=== PATIENT | male | born 1980 | race Caucasian/White ===

== ENCOUNTER 2017-12-18 08:30 | Outpatient (RCR) | payer OTHER, SELFPAY ==
--- NOTE | 2017-11-25 16:49 | HP.PTEVAL_ITS ---
Patient's Visit Information PIETER LERNER is a 37 year old M referred to Physical Therapy by Out of Town [facility] with a diagnosis of Achilles Tendonitis and plantar fascitis. 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 Had a procedure 2014 shock wave therapy with graston 2 years ago. Pain has been on/off for 10 years. Comes and goes. First step out of bed in the AM is the worst- tip toes knees bent- once he brushes his teeth he can put his feet down. Left side is the problem when sitting and most right now but it goes back and forth. Worst: 6/10 agg:getting up in the AM, running, getting up from sitting for long periods of time. Best: 0/10 Eases: inserts. Was wearing inserts. Running: has not gone over a mile in a few months but wants to get back to running. Does have inserts but they are not custom. Work: sitting most of the day. Switched to be a toe runner about 6-7 years ago. Describes pain as Sharp shooting pains. Does have night splints. Sleep: does not wake him up. No N/T in the feet. PMHx: bursitis in the left hip, right torn rtC, ADHD. Meds: none. X-rays. - Objective Posture: fh, RS- patient is mildly overweight. Gait: slightly antalgic- does not heel strike. hr/TR: able- mild increase pain with TR. SLS: 30 sec with mild pes planus. ROM: DF: 5 degrees, PF: 60 degrees, Ever: 30 degrees, Inv: 50 degrees. Strength: Ankle: 5/5, Knee: 5/5, Hip: 4+/5. Palpation: tender along achilles tendon bilaterally with pain along arch and heel left >right - Goals Goal 1:: Patient will be I with HEP and progression Goal Time Frame: 4-6 Weeks Goal 2:: Lorenzo will demo mild restriction in gastroc Goal Time Frame: 4-6 Weeks Goal 3:: Patient will report 0/10 pain for 1 week Goal Time Frame: 4-6 Weeks - Rehabilitation Potential Physical Therapy Diagnosis: Lorenzo presents with hypomobility- he has decreased ROM, strength and muscular endurance leading to abnormal gait and increased pain Rehabilitation Potential: Fair - Anticipated Interventions Patient/Client Instruction: Educate patient on: Benefits of Fitness Program For the Purpose of:: To improve performance and independence with ADL's Therapeutic Exercise to Include: Strength training, Endurance training, Balance training, Body mechanics, Postural training, Flexibilty training, Passive ROM, Active ROM Manual Therapy Techniques to Include: Functional dry needling, Soft tissue mobilization For the Purpose of:: To improve nutrient delivery to tissue IF ES: No Cryotherapy (ice pack, ice massage): Yes Thermo therapy (hot pack): Yes Ultrasound (thermal/non thermal): Yes For the Purpose of:: To decrease pain Thank you for the opportunity to evaluate your patient. For Medicare and Medicare HMO plans, please review the plan of care and approve it. It will need to be FAXED BACK to us at [phone] for Medicare purposes. Please let me know if there are questions or concerns regarding this plan of care. Physician Signature: Date:
--- NOTE | 2018-02-04 09:26 | HP.PT.NRP ---
HP - Discharge Summary (1) - Patient Information PIETER LERNER was seen in my office for initial evaluation on 11/25/17. The following Plan of Care was established for this patient: Initial Frequency: 2x /Week Initial Duration: 4 Weeks - Anticipated Interventions Patient/Client Instruction: Educate patient on: Benefits of Fitness Program For the Purpose of:: To improve performance and independence with ADL's Therapeutic Exercise to Include: Strength training, Endurance training, Balance training, Body mechanics, Postural training, Flexibilty training, Passive ROM, Active ROM Manual Therapy Techniques to Include: Functional dry needling, Soft tissue mobilization For the Purpose of:: To improve nutrient delivery to tissue IF ES: No Cryotherapy (ice pack, ice massage): Yes Thermo therapy (hot pack): Yes Ultrasound (thermal/non thermal): Yes For the Purpose of:: To decrease pain This patient was last seen in our office . Pertinent comments regarding their Physical therapy will appear below: Patient has not attended physical therapy in over 30 days and is appropriate for d/c- return to MD as needed. At this point I will be discontinuing this patient from physical therapy. I would be happy to see this patient again in the future if found appropriate by the physician. Thank you! Eve Caldera
== END 2017-12-18 19:00 | disposition home or self-care (01) ==
LOC: PT 08:30
DX: M76.61 Achilles tendinitis, right leg (principal); M25.571 Pain in right ankle and joints of right foot; M72.2 Plantar fascial fibromatosis
CPT/HCPCS: 97110; 97140; 97161

== ENCOUNTER 2018-06-03 08:30 | Outpatient (RCR) | payer OTHER, SELFPAY ==
--- NOTE | 2018-05-05 10:14 | HP.PTEVAL_ITS ---
Patient's Visit Information PIETER LERNER is a 37 year old M referred to Physical Therapy by JOSIE TEJADA with a diagnosis of LBP. Date of Evaluation: 05/05/18 Physical Therapist: Richie Guerrero, PT, - Visit Plan Frequency: 3x /Week Duration: 5 weeks Plan: REIL, postural edu, core stab ex's, and HEP - Subjective Subjective: Pt reports he has had chronic LBP in the past, but notes he really aggrivated his LB 1 1/2 weeks ago. Pt reports he was exercising performing a deadlift when he felt like his LB became sore. Pt reports he has had a Hx of LB trauma beginning when he was a kid. Pt notes his pain is getting better since he was given a steroid pack. Pt notes he has always exercised, but has never really worked his core. Pt reports walking has been difficult due to his LBP. Pt reports sleep diff without taking pain meds. Pt reports he has been stretching some to help decrease his pain. No T or N in LE's. 0/10 pain at rest , 4/10 pain at worst. - Pain LBP Pain Intensity (Out of 10): 0 Pain Intensity Range: 4 - Objective Neuro: B LE sensation is WNL to light touch. B patellar reflex= 2/3. MMT: B LE' s are grossly 5/5 throughout. L/S ROM: Pt is minimally limited with extension, all other motions are WNL. Repeated Movements: RFIS 10 reps provokes LBP. LAYO 10 reps NE. REIL 10x2 had no effect afterwards. - Goals Goal 1:: Decrease LBP x 50% to aid with sleep Goal Time Frame: 4-6 Weeks Goal 2:: Increase L/S ext ROM x 1 grade to aid with decreasing LBP Goal Time Frame: 4-6 Weeks Goal 3:: Return to normal exercise routine without limitation Goal Time Frame: 4-6 Weeks Goal 4:: I with HEP Goal Time Frame: 4-6 Weeks - Rehabilitation Potential Physical Therapy Diagnosis: Pt has LBP, decreased L/S ROM, and difficulty with prolonged walking secondary to L/S disc derrangement Rehabilitation Potential: Good - Anticipated Interventions Patient/Client Instruction: Educate patient on: Condition, Plan of Care For the Purpose of:: To improve self management Therapeutic Exercise to Include: Strength training, Endurance training, Body mechanics, Postural training, Dynamic Lumbar Stabilization For the Purpose of:: To decrease pain, To increase ROM, To improve muscle performance and motor function Cryotherapy (ice pack, ice massage): Yes Thermo therapy (hot pack): Yes For the Purpose of:: To decrease pain Thank you for the opportunity to evaluate your patient. For Medicare and Medicare HMO plans, please review the plan of care and approve it. It will need to be FAXED BACK to us at [phone] for Medicare purposes. Please let me know if there are questions or concerns regarding this plan of care. Physician Signature: Date:
--- NOTE | 2018-09-08 13:33 | HP.PT.NRP ---
HP - Discharge Summary (1) - Patient Information PIETER LERNER was seen in my office for initial evaluation on 05/05/18. The following Plan of Care was established for this patient: Initial Frequency: 3x /Week Initial Duration: 5 weeks - Anticipated Interventions Patient/Client Instruction: Educate patient on: Condition, Plan of Care For the Purpose of:: To improve self management Therapeutic Exercise to Include: Strength training, Endurance training, Body mechanics, Postural training, Dynamic Lumbar Stabilization For the Purpose of:: To decrease pain, To increase ROM, To improve muscle performance and motor function Cryotherapy (ice pack, ice massage): Yes Thermo therapy (hot pack): Yes For the Purpose of:: To decrease pain This patient was last seen in our office . Pertinent comments regarding their Physical therapy will appear below: Pt was treated for 9 PT visits for his LBP through the date of 06/03/18. Pt cancelled his remaining 2 appointments due to illness and has not returned through todays date and is therefore discontinued at this time. At this point I will be discontinuing this patient from physical therapy. I would be happy to see this patient again in the future if found appropriate by the physician. Thank you! Richie Guerrero, PT, ATC
== END 2018-06-03 19:00 | disposition home or self-care (01) ==
LOC: PT 08:30
DX: M54.5 Low back pain (principal)
CPT/HCPCS: 97110; 97161